=== PATIENT | female | born 1945 | race Caucasian/White ===

== ENCOUNTER 2024-05-23 12:49 | Outpatient (CLI) | payer MEDICARE, SELFPAY ==
--- NOTE | ~2024-05-23 | XR_ITS ---
EXAMINATION: [id number] DATE: 05/23/2024 13:23 INDICATION: Neck pain. TECHNIQUE: 3 views of cervical spine were obtained. COMPARISON: None. FINDINGS: There is 12 degrees dextroscoliosis of cervical spine. There is kyphosis of cervical spine. There is 2 mm anterolisthesis of C5 on C6, 3 mm retrolisthesis of C6 on C7, and 2 mm anterolisthesis of C7 on T1. Vertebral body heights are normal. There is severely decreased disc height from C4-C5 t hrough C7-T1. 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 There is mild central canal stenosis at C3-C4, C4-C5, C5-C6, C6-C7, and C7-T1. No prevertebral soft tissue sw elling. IMPRESSION: 1. Severe cervical spondylosis. 2. Cerebral kyphosis and dextroscoliosis. Reviewed, dictated and finalized at location A. SUPERVISOR
== END 2024-05-23 12:50 | disposition home or self-care (01) ==
PROVIDERS: PCP Physician Assistant; Visit Provider Physician Assistant
DX: M43.02 Spondylolysis, cervical region (principal); M41.82 Other forms of scoliosis, cervical region
CPT/HCPCS: 72040